=== PATIENT | female | born 1990 | race Caucasian/White ===

== ENCOUNTER 2017-08-06 10:07 | Inpatient (IN) | payer OTHER ==
[~2017-08-06] VITALS: Ht 157.5 cm; Wt 59.1 kg
[~2017-08-06 10:07] MED LIST: MANUKA HONEY PO; [UNRECOGNIZED DRUG - OTHER] PO; [UNRECOGNIZED DRUG - OTHER] PO
[2017-08-06] MEDS ORDERED: NEWBORN KIT ONE (10:17)
[2017-08-06] MEDS ORDERED: SODIUM CITRATE/CITRIC ACID 30 ML UDC ONE (10:17)
[2017-08-06] MEDS ORDERED: METOCLOPRAMIDE 5 MG/ML, 2ML ONE (10:17)
[2017-08-06] MEDS ORDERED: OXYTOCIN 30U/ 0.9% NaCL 500ML 500 ML ONE (10:17)
[2017-08-06] MEDS ORDERED: OXYTOCIN 30U/ 0.9% NaCL 500ML 500 ML IV SCH (10:19)
[2017-08-06] MEDS ORDERED: LACTATED RINGERS 1,000 ML IV SCH ×3 (10:19→12:01)
[2017-08-06] MEDS ORDERED: METOCLOPRAMIDE 5 MG/ML, 2ML IV ONE (10:30)
[2017-08-06] MEDS ORDERED: SODIUM CITRATE/CITRIC ACID 30 ML UDC PO ONE (10:30)
[2017-08-06] MEDS ORDERED: LACTATED RINGERS 1,000 ML IVBOLUS ONE (10:30)
[2017-08-06] MEDS ORDERED: PLEASE ENTER HEIGHT AND WEIGHT MC SCH (10:30)
[2017-08-06 11:55] LABS: BASOPHILS # (AUTO) 0.01 x10^3/uL (0-0.1); BASOPHILS % (AUTO) 0 % (0-1); EOSINOPHILS % (AUTO) 0 % (1-7); LYMPHOCYTES # (AUTO) 1.06 x10^3/uL (1-3.4); LYMPHOCYTES % (AUTO) 10 % (22-44); MD NO; MEAN CORPUSCULAR HGB CONC 32.7 g/dL (32.4-35.8); MEAN CORPUSCULAR VOLUME 85.8 fL (80-100); MEAN PLATELET VOLUME 10.1 fL (7.4-10.4); MONOCYTES # (AUTO) 0.28 x10^3/uL (0.2-0.8); MONOCYTES % (AUTO) 3 % (2-9); NEUTROPHILS # (AUTO) 9.26 x10^3/uL (1.8-6.8); NEUTROPHILS % (AUTO) 87 % (42-75); PLATELET COUNT 275 x10^3/uL (130-400); RED BLOOD COUNT 4.44 x10^6/uL (3.82-5.3)
[2017-08-06] MEDS: LACTATED RINGERS 1,000 ML IV SCH ×3 (12:01→22:49)
[2017-08-06] MEDS: KETOROLAC 30 MG/1 ML IV SCH ×3 (12:30→19:41)
[2017-08-06] MEDS ORDERED: METHYLERGONOVINE 0.2 MG/ML IM PRN (12:30)
[2017-08-06] MEDS ORDERED: morphine SULFATE 10 MG/ML, 1ML IVPush PRN ×2 (12:30)
[2017-08-06] MEDS ORDERED: OXYcodone/APAP 5/325MG TABLET PO PRN ×2 (12:30)
[2017-08-06] MEDS ORDERED: ONDANSETRON 2MG/ML, 2ML IV PRN ×2 (12:30→14:00)
[2017-08-06] MEDS ORDERED: MISOPROSTOL 200 MCG TABLET PO PRN (12:30)
[2017-08-06] MEDS: PRENATAL VIT/IRON/FA 1 EACH TABLET PO SCH (12:30)
[2017-08-06] MEDS ORDERED: SIMETHICONE 80 MG CHEW TAB PO PRN (12:30)
[2017-08-06] MEDS: OXYTOCIN 30U/ 0.9% NaCL 500ML 500 ML IV SCH ×2 (12:59→22:01)
[2017-08-06] MEDS ORDERED: KETOROLAC 30 MG/1 ML ONE (13:27)
[2017-08-06 14:00] VITALS: BP 111/67
[2017-08-06] MEDS ORDERED: HYDROmorphone 2 MG/ML, 1ML IV PRN (14:00)
[2017-08-06] MEDS ORDERED: FENTANYL PF 100 MCG/2ML IVPush PRN (14:00)
[2017-08-06] MEDS ORDERED: KETOROLAC 30 MG/1 ML IVPush PRN (14:00)
[2017-08-06 16:15] VITALS: BP 113/72
[2017-08-06 19:23] LABS: BASOPHILS % (AUTO) 0 % (0-1); EOSINOPHILS % (AUTO) 0 % (1-7); LYMPHOCYTES # (AUTO) 0.74 x10^3/uL (1-3.4); LYMPHOCYTES % (AUTO) 7 % (22-44); MD NO; MEAN CORPUSCULAR HEMOGLOBIN 28.5 pg (27.0-34.8); MEAN CORPUSCULAR HGB CONC 32.7 g/dL (32.4-35.8); MEAN CORPUSCULAR VOLUME 87.3 fL (80-100); MEAN PLATELET VOLUME 9.2 fL (7.4-10.4); MONOCYTES # (AUTO) 0.31 x10^3/uL (0.2-0.8); MONOCYTES % (AUTO) 3 % (2-9); NEUTROPHILS # (AUTO) 9.28 x10^3/uL (1.8-6.8); NEUTROPHILS % (AUTO) 90 % (42-75); PLATELET COUNT 205 x10^3/uL (130-400); RED BLOOD COUNT 3.23 x10^6/uL (3.82-5.3); RED CELL DISTRIBUTION WIDTH 12.7 % (9.6-15.2)
[2017-08-06 20:00] VITALS: BP 110/69
[2017-08-07] VITALS: BP 112/67
[2017-08-07] MEDS: KETOROLAC 30 MG/1 ML IV SCH ×4 (01:43→19:51)
[2017-08-07 04:00] VITALS: BP 111/68
[2017-08-07] MEDS: PRENATAL VIT/IRON/FA 1 EACH TABLET PO SCH (07:15)
[2017-08-07] MEDS: DOCUSATE 100 MG CAPSULE PO PRN (07:15)
[2017-08-07 07:36] VITALS: BP 103/66
[2017-08-07] MEDS: ACETAMINOPHEN 325 MG TABLET PO PRN ×2 (10:00→17:53)
[2017-08-07 20:00] VITALS: BP 103/65
[2017-08-08] MEDS: KETOROLAC 30 MG/1 ML IV SCH (01:40)
[2017-08-08 07:30] VITALS: BP 104/67
[2017-08-08] MEDS: PRENATAL VIT/IRON/FA 1 EACH TABLET PO SCH (07:49)
[2017-08-08] MEDS: DOCUSATE 100 MG CAPSULE PO PRN (07:49)
[2017-08-08] MEDS ORDERED: IBUP-1222 PO (10:30)
[2017-08-08] MEDS ORDERED: DOCU-131 PO (10:30)
[2017-08-08] MEDS ORDERED: OXYC-302 PO (10:31)
[2017-08-08] MEDS ORDERED: IBUPROFEN 600 MG TABLET PO PRN (12:30)
[2017-08-08] MEDS ORDERED: FERROUS GLUCONATE 324 MG TABLET PO SCH (17:00)
== END 2017-08-08 13:50 | disposition home or self-care (01) | DRG 766 ==
LOC: LDOP 10:07 → LDIP 10:20 → 2NW 14:00 → EDSTATUS 08-15 10:07
PROVIDERS: ADMIT Obstetrics & Gynecology; ATTEND Obstetrics & Gynecology
PROC: 10D00Z1 Extraction of Products of Conception, Low, Open Approach (ICD-10-PCS; principal; 2017-08-06)
DX: O32.1XX0 Maternal care for breech presentation, not applicable or unspecified (principal); O36.5990 Maternal care for other known or suspected poor fetal growth, unspecified trimester, not applicable or unspecified; O69.81X0 Labor and delivery complicated by cord around neck, without compression, not applicable or unspecified; Z3A.39 39 weeks gestation of pregnancy; Z37.0 Single live birth
CPT/HCPCS: 36415; 85025; 86850; 86900; J1885; C1765; J2590; J2765; J7120